=== PATIENT | female | born 1935 | race Hispanic/Latino ===

== ENCOUNTER 2017-03-08 09:29 | Outpatient (CLI) | payer MEDICARE ==
--- NOTE | 2017-03-08 10:35 | Mammography Report ---
Screening right mammogram: Left mastectomy. Routine views obtained and compared to comparable exam in 2016. There is a heterogeneously dense fibroglandular pattern with no significant findings or interval changes. CAD used. Impression: Stable right mammogram post left mastectomy. Recommendation: Age-appropriate mammogram followup. BI-RADS CATEGORY: 1 = Negative ACR BI-RADS MAMMOGRAPHIC CODES: 0 = Needs additional imaging evaluation; 1 = Negative; 2 = Benign; 3 = Probably benign; 4 = Suspicious; 5 = Malignant; 6 = Known biopsy-proven malignancy COMMENT: 1. Dense breast tissue, i.e., adenosis, fibrocystic changes, etc., may obscure an underlying neoplasm. 2. Approximately 10% of cancers are not detected with mammography. 3. A negative mammography report should not delay biopsy if a clinically suspicious mass is present.
== END 2017-03-08 09:30 | disposition home or self-care (01) ==
LOC: SPVWC 09:29
PROVIDERS: ATTEND Obstetrics & Gynecology
DX: Z12.31 Encounter for screening mammogram for malignant neoplasm of breast (principal)
CPT/HCPCS: G0202-52

== ENCOUNTER 2018-03-10 08:23 | Outpatient (CLI) | payer MEDICARE ==
--- NOTE | 2018-03-10 13:53 | Mammography Report ---
RIGHT DIGITAL SCREENING MAMMOGRAM with CAD: 03/10/18 08:23:00 CLINICAL: Routine screening. Breast cancer survivor status post left mastectomy. COMPARISON:03/08/17 FINDINGS: The breast is heterogeneously dense, which may obscure small masses.No mass, architectural distortion or suspicious calcifications. IMPRESSION: No mammographic evidence of malignancy. BI-RADS CATEGORY: 1 - - Negative RECOMMENDATION: Routine screening in one year. ACR BI-RADS MAMMOGRAPHIC CODES: 0 = Needs additional imaging evaluation; 1 = Negative; 2 = Benign; 3 = Probably benign; 4 = Suspicious; 5 = Malignant; 6 = Known biopsy-proven malignancy COMMENT: 1. Dense breast tissue, i.e., adenosis, fibrocystic changes, etc., may obscure an underlying neoplasm. 2. Approximately 10% of cancers are not detected with mammography. 3. A negative mammography report should not delay biopsy if a clinically suspicious mass is present. COMMENT: Patient follow-up letters are generated via our [employer] application.
== END 2018-03-10 08:24 | disposition home or self-care (01) ==
LOC: SPVWC 08:23
PROVIDERS: ATTEND Obstetrics & Gynecology
DX: Z12.31 Encounter for screening mammogram for malignant neoplasm of breast (principal)

== ENCOUNTER 2019-03-15 09:29 | Outpatient (CLI) | payer MEDICARE ==
--- NOTE | 2019-03-15 11:21 | Mammography Report ---
RIGHT BREAST DIGITAL SCREENING MAMMOGRAM WITH CAD HISTORY: SCREENING COMPARISON: 03/10/2018 and 03/06/2015 FINDINGS: Breast Density: Heterogeneously dense breast parenchymal pattern which somewhat lessens the sensitivi ty of the evaluation. Digital CC and MLO views of the right breast demonstrate no mass, architectural distortion or suspici ous calcifications. No significant interval change. IMPRESSION No mammographic evidence of interval change or malignancy. If the clinical examination remains stabl e, recommend left breast mammographic evaluation in approximately one year. BIRADS 1: Negative. According to the [employer], yearly mammograms are recommended starting at age 40 and continuing as long as a woman is in good health. Clinical Breast Exams should be part of a period ic health exam-about every 3 years for women in their 20s and 30s and every year for women 40 and ove r. Breast self exam is an option for women starting in their 20s. Any breast change noted on a breast self exam should be reported promptly to the patient's healthcare provider. Breast MRI is recommende d for women with an approximately 20-25% or greater lifetime risk of breast cancer, including women w ith a strong family history of breast or ovarian cancer and women who have been treated for Hodgkin's disease. A negative Mammography report should not discourage follow up or biopsy of a clinically significant f inding and/or abnormality. Dense breast tissue may obscure small neoplasms. This examination was interpreted with the benefit of Computer-aided Detection analysis. Interpretation of this examination was rendered with the benefit of CAD analysis. The patient will be entered into a reminder system with a target due date for the next screening mamm ogram. Signer Name: Demetrius Spear MD Signed: 03/15/2019 11:17 AM Workstation Name: [id number]
== END 2019-03-15 09:30 | disposition home or self-care (01) ==
LOC: SPVWC 09:29
PROVIDERS: ATTEND Internal Medicine
DX: Z12.31 Encounter for screening mammogram for malignant neoplasm of breast (principal)

== ENCOUNTER 2021-04-14 09:33 | Outpatient (CLI) | payer MEDICARE ==
--- NOTE | 2021-04-14 10:28 | Mammography Report ---
DIGITAL DIAGNOSTIC MAMMOGRAM WITH CAD, 04/14/2021 INDICATION: The patient reports pain in the right retroareolar region for many years. She has a perso nal history of left breast cancer treated with mastectomy. TECHNIQUE: Digital right mammographic imaging was performed. This examination was interpreted with the benefit of Computer-aided Detection analysis. COMPARISON: 03/15/2019, 03/10/2018, 03/06/2016 FINDINGS: Breast Density: The breasts are heterogeneously dense, which may obscure small masses. There is no evidence of dominant mass, suspicious calcifications or architectural distortion in the r ight breast. There is no focal abnormality to account for the patient's right breast pain. IMPRESSION: Follow up recommendation: Clinical exam. Clinical correlation is recommended for the patient's right breast pain. BI-RADS Category 1: Negative. A "normal" or negative report should not discourage follow up or biopsy of a clinically significant f inding. A written summary of these findings will be mailed to the patient. The patient will be entered into a mammography reporting system which will generate a reminder letter for the patient's next appointmen t at the appropriate interval. According to the [employer], yearly mammograms are recommended starting at age 40 and continuing as long as a woman is in good health. Breast MRI is recommended for women with an james roximately 20-25% or greater lifetime risk of breast cancer, including women with a strong family his tory of breast or ovarian cancer and women who have been treated for Hodgkin's disease. Signer Name: Ambar Askew MD Signed: 04/14/2021 10:24 AM Workstation Name: [id number]
== END 2021-04-14 09:34 | disposition home or self-care (01) ==
LOC: SPVWC 09:33
PROVIDERS: ATTEND Obstetrics & Gynecology
DX: N64.4 Mastodynia (principal); R92.8 Other abnormal and inconclusive findings on diagnostic imaging of breast

== ENCOUNTER 2022-05-13 07:52 | Outpatient (CLI) | payer MEDICARE ==
--- NOTE | 2022-05-13 13:14 | Mammography Report ---
DIGITAL SCREENING MAMMOGRAM WITH CAD, 05/13/2022 CLINICAL INFORMATION / INDICATION: Routine screening mammography. TECHNIQUE: Digital right 2D mammography was obtained in the craniocaudal and mediolateral oblique pr ojections. This examination was interpreted with the benefit of Computer-Aided Detection analysis. COMPARISON: 02/19/2014 through 04/14/2021. FINDINGS: Breast Density: The breasts are heterogeneously dense, which may obscure small masses. No dominant mass, suspicious calcifications, or architectural distortion in the right breast. There are mild right breast arterial calcifications. IMPRESSION: No mammographic evidence of malignancy. Follow up recommendation: Routine yearly screening mammogram. - The ACR recommends yearly screening MRI in patients with a personal history of breast cancer who baez ve dense fibroglandular tissue as well in patients who were diagnosed with breast cancer under the ag e of 50. BI-RADS Category 2: BENIGN. A "normal" or negative report should not discourage follow up or biopsy of a clinically significant f inding. A written summary of these findings will be mailed to the patient. The patient will be entered into a mammography reporting system which will generate a reminder letter for the patient's next appointmen t at the appropriate interval. The [employer] recommends yearly mammograms starting at age 40 and continuing as l [place] as a woman is in good health. Breast MRI is recommended for women with an approximate 20-25% or greater lifetime risk of breast cancer, including women with a strong family history of breast or ova jeaneth cancer or who have been treated for Hodgkin's disease. Signer Name: Khurram Bee MD Signed: 05/13/2022 1:10 PM Workstation Name: [id number]
== END 2022-05-13 07:53 | disposition home or self-care (01) ==
LOC: SPVWC 07:52
PROVIDERS: ATTEND Internal Medicine
DX: Z12.31 Encounter for screening mammogram for malignant neoplasm of breast (principal)